=== PATIENT | female | born 1990 | race Caucasian/White ===

== ENCOUNTER 2020-08-19 16:24 | Inpatient (IN) | payer MEDICAID ==
[2020-08-19] MEDS ORDERED: NORMAL SALINE 1000 ML 1,000 ML IV ONE ×3 (16:45→20:41)
--- NOTE | 2020-08-19 16:48 | ER Document Report ---
ED Medical Screen (RME) - General Stated Complaint: ABDOMINAL PAIN Time Seen by Provider: 08/19/20 16:37 Primary Care Provider: MARGUERITE BLISS PA [Primary Care Provider] - Follow up as needed Notes: 30-year-old female patient presenting at 15 weeks gestation complaining of left flank pain, generalized abdominal pain, vomiting all day and recurrent urinary tract infections since October. Most recently she was placed on an antibiotic in July. She states that her pain significantly worsened over the last 24 hours so she decided to go to urgent care. They could not see her due to extended wait time. On arrival to the emergency department here her temperature is 101.9. I have rechecked this and it is 102.7. Patient did not know she had a fever although she states she felt feverish last night. Patient appears moderately uncomfortable, she is clutching her abdomen. I suspect she has pyelonephritis. Orders entered. Patient will go to her room. I have greeted and performed a rapid initial assessment of this patient. A comprehensive ED assessment and evaluation of the patient, analysis of test results and completion of the medical decision making process will be conducted by additional ED providers. I have specifically instructed the patient or family members with the patient to immediately return to any nursing staff should anything change in the patient's condition or with their chief complaint. TRAVEL OUTSIDE OF THE [place] IN LAST 30 DAYS: No - Related Data Allergies/Adverse Reactions: No Known Allergies Allergy (Verified 08/07/13 21:32) Past Medical History Musculoskeltal Medical History: Reports Hx Musculoskeletal Trauma Traumatic Medical History: Reports: Hx Fractures - ankle - Immunizations Hx Diphtheria, Pertussis, Tetanus Vaccination: Yes Physical Exam - Vital signs Vitals: Temp Pulse Resp BP Pulse Ox 101.9 F H 116 H 20 107/79 100 08/19/20 16:29 08/19/20 16:29 08/19/20 16:29 08/19/20 16:29 08/19/20 16:29 Course - Vital Signs Vital signs: Temp Pulse Resp BP Pulse Ox 102.7 F H 116 H 20 107/79 100 08/19/20 16:44 08/19/20 16:29 08/19/20 16:29 08/19/20 16:29 08/19/20 16:29 Doctor's Discharge - Discharge Referrals: MARGUERITE BLISS PA [Primary Care Provider] - Follow up as needed
[2020-08-19] MEDS ORDERED: ACETAMINOPHEN 325 MG TABLET PO ONE (17:22)
[2020-08-19] MEDS ORDERED: ONDANSETRON HCL INJ/PF 4 MG/2 ML SDV IV ONE (17:30)
[2020-08-19 17:33] LABS: ABSOLUTE MONOCYTES (AUTO) 1.3 10^3/uL (0.1-1.4); ABSOLUTE NEUT (AUTO) 17.5 10^3/uL (1.7-8.2); BASOPHILS % (AUTO) 0.1 % (0-2); HEMATOCRIT 34.4 % (36.0-47.0); HEMOGLOBIN 11.8 g/dL (12.0-15.5); LYMPHOCYTES % (AUTO) 5.2 % (13-45); MEAN CORPUSCULAR HEMOGLOBIN 30.6 pg (27.0-33.4); MEAN CORPUSCULAR HGB CONC 34.4 g/dL (32.0-36.0); MEAN CORPUSCULAR VOLUME 89 fl (80-97); MONOCYTES % (AUTO) 6.5 % (3-13); PLATELET COUNT 218 10^3/uL (150-450); RED BLOOD COUNT 3.86 10^6/uL (3.72-5.28); RED CELL DISTRIBUTION WIDTH 13.8 % (11.5-14.0); SEGMENTED NEUTROPHILS % (AUTO) 88.2 % (42-78); TOTAL CELLS COUNTED % (AUTO) 100 %; WHITE BLOOD COUNT 19.9 10^3/uL (4.0-10.5)
--- NOTE | 2020-08-19 17:38 | ER Document Report ---
ED GI/ - General Stated Complaint: ABDOMINAL PAIN Time Seen by Provider: 08/19/20 16:37 Primary Care Provider: MARGUERITE BLISS PA [ALLIED HEALTH PROFESSIONAL] - Follow up as needed Notes: 30-year-old woman presenting to the emergency department 3 para 0 AB 2 with a 14-week intrauterine . Patient states that she had been treated for urinary tract infection and has been given oral antibiotics x3. She apparently took a course of amoxicillin followed by a course of cephalexin and then nitrofurantoin. He has fever today with associated flank pain and lower abdominal pain. Patient had 2 spontaneous AB with her prior pregnancies. Today she has nausea, vomiting, right flank pain and lower abdominal pain with a fever of 102 she has not been able to keep down fluids or food for the past 48 hours. TRAVEL OUTSIDE OF THE [place] IN LAST 30 DAYS: No - Related Data Allergies/Adverse Reactions: No Known Allergies Allergy (Verified 08/07/13 21:32) Past Medical History - Social History Family History: Arthritis, CAD, DM, Hyperlipidemia, Hypertension, Malignancy Musculoskeletal Medical History: Reports Hx Musculoskeletal Trauma Traumatic Medical History: Reports: Hx Fractures - ankle - Immunizations Hx Diphtheria, Pertussis, Tetanus Vaccination: Yes Review of Systems - Review of Systems Notes: Constitutional: + Fever. HENT: Negative for sore throat. Eyes: Negative for visual changes. Cardiovascular: Negative for chest pain. Respiratory: Negative for shortness of breath. Gastrointestinal: Negative for abdominal pain, vomiting or diarrhea. Genitourinary: See HPI Musculoskeletal: + Back pain. Skin: Negative for rash. Neurological: Negative for headaches, weakness or numbness. 10 point ROS negative except as marked above and in HPI. Physical Exam - Vital signs Vitals: Temp Pulse Resp BP Pulse Ox 101.9 F H 116 H 20 107/79 100 08/19/20 16:29 08/19/20 16:29 08/19/20 16:29 08/19/20 16:29 08/19/20 16:29 - Notes Notes: PHYSICAL EXAMINATION: Physical Exam: General: Well-nourished well-developed 30-year-old female in mild distress secondary to fever and nausea. HEENT: NC/AT, pupils equal round and reactive to light, MM moist,nares clear, oropharynx clear, airway patent Neck: supple, no adenopathy, no masses. Good range of motion Lungs: clear, no wheezing, no rales no rhonchi CVS: Tachycardic rate and rhythm no murmur gallop or rub Abdomen: Soft, active, nontender, no masses, no hepatosplenomegaly Ext: No edema, clubbing or cyanosis. Back: Right CVA tenderness Neuro: Alert and responsive, moving all 4 extremities on command, cranial nerves intact, no focal findings Skin: Intact no open lesions, no rash PSYCH: Normal mood, normal affect. Course - Re-evaluation Re-evalutation: 08/19/20 19:45 Patient is receiving IV fluids, Zofran for nausea and vomiting control, Rocephin 1 g IV, blood cultures x2 and a lactate were performed. Lactic is 1.2 patient appears to be somewhat better after receiving a liter of fluid, however WBC is 19,000 and urine reveals a nitrite positive pyuria. Good heart tone was noted on exam and the patient will be brought into the hospital for further IV antibiotics and closer monitoring. Graf Dr. Smith, [employer] on-call was contacted and will admit the patient to second floor. - Vital Signs Vital signs: Temp Pulse Resp BP Pulse Ox 102.7 F H 116 H 27 H 95/75 L 100 08/19/20 16:44 08/19/20 16:29 08/19/20 18:05 08/19/20 18:05 08/19/20 18:05 - Laboratory Result Diagrams: 08/19/20 17:16 08/19/20 17:16 Laboratory results interpreted by me: 08/19/20 08/19/20 08/19/20 17:16 17:16 18:07 WBC 19.9 H Hgb 11.8 L Hct 34.4 L Lymph % (Auto) 5.2 L Absolute Neuts (auto) 17.5 H Seg Neutrophils % 88.2 H Sodium 129.9 L Potassium 3.4 L Chloride 96 L Carbon Dioxide 21 L Creatinine 0.47 L Glucose 118 H Urine Protein 100 H Urine Ketones 80 H Urine Blood MODERATE H Urine Nitrite POSITIVE H Urine Urobilinogen 2.0 H Ur Leukocyte Esterase LARGE H I have reviewed laboratory data and used this information for the treatment decisions regarding the patient. Discharge - Discharge Clinical Impression: Pyelonephritis, Second trimester Leukocytosis Qualifiers: Leukocytosis type: unspecified Qualified Code(s): D72.829 - Elevated white blood cell count, unspecified Fever Qualifiers: Fever type: unspecified Qualified Code(s): R50.9 - Fever, unspecified Condition: Good Disposition: ADMITTED INPATIENT Admitting Provider: [facility] - Dr. Noe Smith Unit Admitted: Post - Skin asif Referrals: MARGUERITE BLISS PA [ALLIED HEALTH PROFESSIONAL] - Follow up as needed
[2020-08-19] MEDS ORDERED: CEFTRIAXONE 1 GM/D5W RTU 1 GM/50 ML RTUPB IV ONE (18:00)
[2020-08-19 18:03] LABS: ALBUMIN 3.8 g/dL (3.5-5.0); ALKALINE PHOSPHATASE 66 U/L (38-126); ANION GAP 13 (5-19); ASPARTATE AMINO TRANSFERASE 16 U/L (14-36); BILIRUBIN,DIRECT 0.1 mg/dL (0.0-0.4); BILIRUBIN,TOTAL 0.4 mg/dL (0.2-1.3); BLOOD UREA NITROGEN 13 mg/dL (7-20); CALCIUM 8.6 mg/dL (8.4-10.2); CARBON DIOXIDE 21 mmol/L (22-30); CHLORIDE 96 mmol/L (98-107); GLUCOSE 118 mg/dL (75-110); POTASSIUM 3.4 mmol/L (3.6-5.0); TOTAL PROTEIN 6.8 g/dL (6.3-8.2)
[2020-08-19 18:34] LABS: APPEARANCE,URINE CLOUDY; BILIRUBIN,URINE NEGATIVE (NEGATIVE); COLOR,URINE YELLOW; GLUCOSE, URINE NEGATIVE (NEGATIVE); KETONES,URINE 80 mg/dL (NEGATIVE); LEUKOCYTE ESTERASE,URINE LARGE (NEGATIVE); NITRITE,URINE POSITIVE (NEGATIVE); PROTEIN,URINE 100 mg/dL (NEGATIVE); URINE SPECIFIC GRAVITY 1.016
[2020-08-19] MEDS ORDERED: NICOTINE 14 MG/24 HR PATCH.TD24 TD ONE (20:08)
[2020-08-19] MEDS: RINGERS SOLUTION,LACTATED 1,000 ML IV PRN (23:30)
[2020-08-20] MEDS: ACETAMINOPHEN 325 MG TABLET PO PRN ×3 (03:21→20:17)
[2020-08-20] MEDS ORDERED: CEFTRIAXONE 1 GM/D5W RTU 1 GM/50 ML RTUPB IV ONE (04:59)
[2020-08-20] MEDS ORDERED: ONDANSETRON 4 MG TAB.RAPDIS ONE (05:21)
[2020-08-20] MEDS ORDERED: ACETAMINOPHEN 325 MG TABLET ONE (05:22)
[2020-08-20] MEDS: CEFTRIAXONE 1 GM/D5W RTU 1 GM/50 ML RTUPB IV SCH ×2 (05:29→17:10)
[2020-08-20] MEDS ORDERED: ACETAMINOPHEN 325 MG TABLET PO ONE (05:30)
[2020-08-20] MEDS ORDERED: ONDANSETRON 4 MG TAB.RAPDIS PO ONE (05:30)
[2020-08-20] MEDS: RINGERS SOLUTION,LACTATED 1,000 ML IV PRN ×3 (05:30→18:34)
[2020-08-20 07:58] LABS: HEMATOCRIT 28.2 % (36.0-47.0); HEMOGLOBIN 9.8 g/dL (12.0-15.5); MEAN CORPUSCULAR HEMOGLOBIN 30.9 pg (27.0-33.4); MEAN CORPUSCULAR HGB CONC 34.7 g/dL (32.0-36.0); MEAN CORPUSCULAR VOLUME 89 fl (80-97); PLATELET COUNT 164 10^3/uL (150-450); RED BLOOD COUNT 3.17 10^6/uL (3.72-5.28); RED CELL DISTRIBUTION WIDTH 13.9 % (11.5-14.0)
[2020-08-20 08:24] LABS: ABSOLUTE LYMPHOCYTES# (MANUAL) 0.4 10^3/uL (0.5-4.7); ABSOLUTE MONOCYTES # (MANUAL) 0.9 10^3/uL (0.1-1.4); BAND NEUTROPHILS % (MANUAL) 2 % (3-5); BASOPHILS % (MANUAL) 0 % (0-2); EOSINOPHILS % (MANUAL) 0 % (0-6); LYMPHOCYTES % (MANUAL) 2 % (13-45); MONOCYTES % (MANUAL) 5 % (3-13); SEGMENTED NEUTROPHILS % (MAN) 91 % (42-78); TOTAL CELLS COUNTED 100
[2020-08-20 08:25] LABS: PLATELET COMMENT ADEQUATE; RBC MORPHOLOGY COMMENT NORMO-CYTIC/CHROMIC
--- NOTE | 2020-08-20 09:04 | PDOC H&P ---
History of Present Illness Admission Date/PCP: 08/19/20 20:03 Patient complains of: urinary tract infection symptoms with backpain and fever History of Present Illness: ULISES SINGH is a 30 year old female @ 15 1 wks who presented to the ED last evening with complaints of fever and backpain as well as dysuria. She was found to have pyeloneprhitis and febrile. She was admitted by Dr. Smith for IV antibiotics. Pt indicates that she "has kept an UTI since October it seems" and states she's been on multiple different antibiotics for it. Overnight she did spike fevers up to 103.0 that have been relieved with antibiotics, fulids and tylenol. Patient states to me now that she is starting to feel better. Past Medical History Psychiatric Medical History: Denies: Depression Past Surgical History Past Surgical History: Reports: None Social History Information Source: Patient Smoking Status: Current Every Day Smoker Electronic Cigarette use?: No Number of Years Smokin Last Time Smoked: 08/19/2020 Frequency of Alcohol Use: None Hx Recreational Drug Use: No Hx Prescription Drug Abuse: No Family History Family History: Arthritis, CAD, DM, Hyperlipidemia, Hypertension, Malignancy Parental Family History Reviewed: Yes Children Family History Reviewed: NA Sibling(s) Family History Reviewed.: Yes Medication/Allergy Home Medications: Clonazepam [Klonopin 0.5 mg Tablet] 0.5 mg PO BID 08/07/13 Ciprofloxacin HCl [Cipro 500 mg Tablet] 500 mg PO BID #20 tablet 08/08/13 Docusate Sodium [Colace 100 mg Capsule] 100 mg PO BID #60 capsule 08/08/13 Phenazopyridine HCl [Pyridium 200 mg Tablet] 200 mg PO TID #15 tablet 08/08/13 Hydrocodone/Acetaminophen [[place] 5-325 mg Tablet] 1 tab PO TIDP PRN #10 tablet 03/26/16 Allergies/Adverse Reactions: No Known Allergies Allergy (Verified 08/07/13 21:32) Physical Exam - Physical Exam Vital Signs: Temp Pulse Resp BP Pulse Ox 98.3 F 103 H 18 101/58 L 98 08/20/20 08:29 08/20/20 08:29 08/20/20 08:29 08/20/20 08:29 08/20/20 08:29 Intake & Output 08/19/20 08/20/2008/21/20 06:59 06:59 06:59 Intake Total 4000 Output Total 400 Balance 4000 -400 Weight 56.3 kg General appearance: PRESENT: no acute distress, cooperative, well-developed Additional comments: postive CVA tenderness on left flank. Result Laboratory Results: 08/20/20 07:31 08/19/20 17:16 08/19/20 08/19/20 08/19/20 17:16 17:16 17:16 WBC 19.9 H RBC 3.86 Hgb 11.8 L Hct 34.4 L MCV 89 MCH 30.6 MCHC 34.4 RDW 13.8 Plt Count 218 Seg Neutrophils % 88.2 H Sodium 129.9 L Potassium 3.4 L Chloride 96 L Carbon Dioxide 21 L Anion Gap 13 BUN 13 Creatinine 0.47 L Est GFR ( Amer) > 60 Glucose 118 H Lactic Acid 1.2 Calcium 8.6 Total Bilirubin 0.4 AST 16 Alkaline Phosphatase 66 Total Protein 6.8 Albumin 3.8 Urine Color Urine Appearance Urine pH Ur Specific [place] Urine Protein Urine Glucose (UA) Urine Ketones Urine Blood Urine Nitrite Ur Leukocyte Esterase Urine WBC (Auto) Urine RBC (Auto) 08/19/20 08/20/20 18:07 07:31 WBC 18.0 H RBC 3.17 L Hgb 9.8 L Hct 28.2 L MCV 89 MCH 30.9 MCHC 34.7 RDW 13.9 Plt Count 164 Seg Neutrophils % Not Reportable Sodium Potassium Chloride Carbon Dioxide Anion Gap BUN Creatinine Est GFR ( Amer) Glucose Lactic Acid Calcium Total Bilirubin AST Alkaline Phosphatase Total Protein Albumin Urine Color YELLOW Urine Appearance CLOUDY Urine pH 6.0 Ur Specific [place] 1.016 Urine Protein 100 H Urine Glucose (UA) NEGATIVE Urine Ketones 80 H Urine Blood MODERATE H Urine Nitrite POSITIVE H Ur Leukocyte Esterase LARGE H Urine WBC (Auto) >182 Urine RBC (Auto) 8 Assessment & Plan - Diagnosis (1) Fever Qualifiers: Fever type: unspecified Qualified Code(s): R50.9 - Fever, unspecified Is this a current diagnosis for this admission?: Yes (2) Leukocytosis Qualifiers: Leukocytosis type: unspecified Qualified Code(s): D72.829 - Elevated white blood cell count, unspecified Is this a current diagnosis for this admission?: Yes (3) Pyelonephritis Is this a current diagnosis for this admission?: Yes (4) Second trimester Is this a current diagnosis for this admission?: Yes - Time Time Spent: 30 to 50 Minutes Critical Time spent with patient: Less than 15 minutes Smoking Cessation Education: 3 to 10 minutes Medications reviewed and adjusted accordingly: Yes Anticipated Discharge Disposition: Home, Self Care Anticipated Discharge Timeframe: within 48 hours - Inpatient Certification Based on my medical assessment, after consideration of the patient's comorbidities, presenting symptoms, or acuity I expect that the services needed warrant INPATIENT care.: Yes I certify that my determination is in accordance with my understanding of Medicare's requirements for reasonable and necessary INPATIENT services [42 CFR 412.3e].: Yes Medical Necessity: Need For IV Fluids, Need for IV Antibiotics - Plan Summary Plan Summary: continue IV rocephin. Will give Nicotine patch to assist with cravings, add P romethizine for nausea as needed. will get heart tone q daily. Counseled pt that she would need 48 hours of IV antibiotics and she will need to continue oral antibiotics until delivery. 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
[2020-08-20] MEDS: NICOTINE 21 MG/24 HR PATCH.TD24 TD PRN (09:43)
[2020-08-20] MEDS: PROMETHAZINE HCL INJ 25 MG/1 ML VIAL IV PRN (23:26)
[2020-08-21] MEDS: ACETAMINOPHEN 325 MG TABLET PO PRN ×5 (00:23→20:08)
[2020-08-21] MEDS: RINGERS SOLUTION,LACTATED 1,000 ML IV PRN ×3 (01:15→17:21)
[2020-08-21] MEDS: PROMETHAZINE HCL INJ 25 MG/1 ML VIAL IV PRN ×4 (06:30→20:11)
[2020-08-21] MEDS: CEFTRIAXONE 1 GM/D5W RTU 1 GM/50 ML RTUPB IV SCH ×2 (06:34→17:20)
[2020-08-21 07:02] LABS: ABSOLUTE LYMPHOCYTES (AUTO) 1.4 10^3/uL (0.5-4.7); ABSOLUTE NEUT (AUTO) 11.6 10^3/uL (1.7-8.2); BASOPHILS % (AUTO) 0.1 % (0-2); EOSINOPHILS % (AUTO) 0.3 % (0-6); HEMATOCRIT 30.1 % (36.0-47.0); HEMOGLOBIN 10.6 g/dL (12.0-15.5); LYMPHOCYTES % (AUTO) 9.8 % (13-45); MEAN CORPUSCULAR HEMOGLOBIN 31.5 pg (27.0-33.4); MEAN CORPUSCULAR HGB CONC 35.3 g/dL (32.0-36.0); MEAN CORPUSCULAR VOLUME 89 fl (80-97); MONOCYTES % (AUTO) 7.4 % (3-13); PLATELET COUNT 153 10^3/uL (150-450); RED BLOOD COUNT 3.38 10^6/uL (3.72-5.28); RED CELL DISTRIBUTION WIDTH 14.2 % (11.5-14.0); SEGMENTED NEUTROPHILS % (AUTO) 82.4 % (42-78); TOTAL CELLS COUNTED % (AUTO) 100 %; WHITE BLOOD COUNT 14.1 10^3/uL (4.0-10.5)
[2020-08-21] MEDS: NICOTINE 21 MG/24 HR PATCH.TD24 TD PRN (09:31)
--- NOTE | 2020-08-21 09:50 | PDOC PROGRESS REPORT ---
Subjective Date:: 08/21/20 Subjective:: She is doing well today. Reason For Visit: PYELONEPHRITIS,SECOND TRIMESTER , Physical Exam - Physical Exam Vital Signs: Temp Pulse Resp BP Pulse Ox 98.4 F 98 16 104/56 L 99 08/21/20 07:18 08/21/20 07:18 08/21/20 07:18 08/21/20 07:18 08/21/20 07:18 Intake & Output 08/20/20 08/21/20 08/22/20 06:59 06:59 06:59 Intake Total 4000 4610 50 Output Total 2550 Balance 4000 2060 50 Weight 56.3 kg 56.9 kg General appearance: PRESENT: no acute distress, well-developed, well-nourished Cardiovascular exam: PRESENT: RRR. ABSENT: diastolic murmur, rubs, systolic mur mur Pulses: PRESENT: normal dorsalis pedis pul, +2 pedal pulses bilateral Vascular exam: PRESENT: normal capillary refill Extremities exam: PRESENT: full ROM. ABSENT: calf tenderness, clubbing, pedal edema Musculoskeletal exam: PRESENT: other - still cva tenderness Result Laboratory Results: 08/21/20 06:42 08/19/20 17:16 08/21/20 06:42 WBC 14.1 H RBC 3.38 L Hgb 10.6 L Hct 30.1 L MCV 89 MCH 31.5 MCHC 35.3 RDW 14.2 H Plt Count 153 Seg Neutrophils % 82.4 H 08/19/20 18:07 Clean Catch Midstream Urine Culture - Final Escherichia Coli Assessment & Plan - Diagnosis (1) Fever Qualifiers: Fever type: unspecified Qualified Code(s): R50.9 - Fever, unspecified Is this a current diagnosis for this admission?: Yes (2) Pyelonephritis Is this a current diagnosis for this admission?: Yes (3) Second trimester Is this a current diagnosis for this admission?: Yes Plan: Continue IV fluids and antibiotics. - Time Time Spent with patient: Less than 15 minutes Medications reviewed and adjusted accordingly: Yes Anticipated discharge: Home Anticipated DC Timeframe: within 48 hours
[2020-08-22] MEDS: ACETAMINOPHEN 325 MG TABLET PO PRN ×3 (00:41→09:29)
[2020-08-22] MEDS: RINGERS SOLUTION,LACTATED 1,000 ML IV PRN (00:41)
[2020-08-22] MEDS: PROMETHAZINE HCL INJ 25 MG/1 ML VIAL IV PRN ×3 (00:41→09:23)
[2020-08-22] MEDS: CEFTRIAXONE 1 GM/D5W RTU 1 GM/50 ML RTUPB IV SCH (05:18)
[2020-08-22] MEDS: NICOTINE 21 MG/24 HR PATCH.TD24 TD PRN (08:48)
--- NOTE | 2020-08-22 12:50 | PDOC DISCHARGE SUMMARY ---
Impression - Admit/DC Date/PCP Admission Date/Primary Care Provider: 08/19/20 20:03 MICHAEL DICKERSON MD Discharge Date: 08/22/20 - Discharge Diagnosis (1) Pyelonephritis Is this a current diagnosis for this admission?: Yes (2) Second trimester Is this a current diagnosis for this admission?: Yes - Additional Information Resuscitation Status: Full Code Discharge Diet: As Tolerated Discharge Activity: Activity As Tolerated Referrals: MARGUERITE BLISS PA [ALLIED HEALTH PROFESSIONAL] - ([facility] as scheduled or in 2 wks D) Prescriptions: Nitrofurantoin Monohyd/M-Cryst [Macrobid 100 mg Capsule] 100 mg PO BID 7 Days #14 cap Home Medications: Ciprofloxacin HCl [Cipro 500 mg Tablet] 500 mg PO BID #20 tablet 08/08/13 Docusate Sodium [Colace 100 mg Capsule] 100 mg PO BID #60 capsule 08/08/13 Nitrofurantoin Monohyd/M-Cryst [Macrobid 100 mg Capsule] 100 mg PO BID 7 Days #14 cap 08/22/20 History of Present Illiness History of Present Illness: ULISES SINGH is a 30 year old female Physical Exam - Physical Exam Vital Signs: Temp Pulse Resp BP Pulse Ox 98.3 F 80 16 119/66 99 08/22/20 11:14 08/22/20 11:14 08/22/20 11:14 08/22/20 11:14 08/22/20 11:14 Intake & Output 08/21/20 08/22/20 08/23/20 06:59 06:59 06:59 Intake Total 4610 3725 640 Output Total 2550 Balance 2060 3725 640 Weight 56.9 kg 57.9 kg Results Laboratory Results: WBC 14.1 10^3/uL (4.0-10.5) H 08/21/20 06:42 RBC 3.38 10^6/uL (3.72-5.28) L 08/21/20 06:42 Hgb 10.6 g/dL (12.0-15.5) L 08/21/20 06:42 Hct 30.1 % (36.0-47.0) L 08/21/20 06:42 MCV 89 fl (80-97) 08/21/20 06:42 MCH 31.5 pg (27.0-33.4) 08/21/20 06:42 MCHC 35.3 g/dL (32.0-36.0) 08/21/20 06:42 RDW 14.2 % (11.5-14.0) H 08/21/20 06:42 Plt Count 153 10^3/uL (150-450) 08/21/20 06:42 Lymph % (Auto) 9.8 % (13-45) L 08/21/20 06:42 [place] % (Auto) 7.4 % (3-13) 08/21/20 06:42 Eos % (Auto) 0.3 % (0-6) 08/21/20 06:42 Baso % (Auto) 0.1 % (0-2) 08/21/20 06:42 Absolute Neuts (auto) 11.6 10^3/uL (1.7-8.2) H 08/21/20 06:42 Absolute Lymphs (auto) 1.4 10^3/uL (0.5-4.7) 08/21/20 06:42 Absolute Monos (auto) 1.0 10^3/uL (0.1-1.4) 08/21/20 06:42 Absolute Eos (auto) 0.0 10^3/uL (0.0-0.6) 08/21/20 06:42 Absolute Basos (auto) 0.0 10^3/uL (0.0-0.2) 08/21/20 06:42 Total Counted 100 08/20/20 07:31 Seg Neutrophils % 82.4 % (42-78) H 08/21/20 06:42 Seg Neuts % (Manual) 91 % (42-78) H 08/20/20 07:31 Band Neutrophils % 2 % (3-5) L 08/20/20 07:31 Lymphocytes % (Manual) 2 % (13-45) L 08/20/20 07:31 Monocytes % (Manual) 5 % (3-13) 08/20/20 07:31 Eosinophils % (Manual) 0 % (0-6) 08/20/20 07:31 Basophils % (Manual) 0 % (0-2) 08/20/20 07:31 Abs Neuts (Manual) 16.7 10^3/uL (1.7-8.2) H 08/20/20 07:31 Abs Lymphs (Manual) 0.4 10^3/uL (0.5-4.7) L 08/20/20 07:31 Abs Monocytes (Manual) 0.9 10^3/uL (0.1-1.4) 08/20/20 07:31 Absolute Eos (Manual) 0.0 10^3/uL (0.0-0.6) 08/20/20 07:31 Abs Basophils (Manual) 0.0 10^3/uL (0.0-0.2) 08/20/20 07:31 Platelet Comment ADEQUATE 08/20/20 07:31 RBC Morph Comment NORMO-CYTIC/CHROMIC 08/20/20 07:31 Sodium 129.9 mmol/L (137-145) L 08/19/20 17:16 Potassium 3.4 mmol/L (3.6-5.0) L 08/19/20 17:16 Chloride 96 mmol/L (98-107) L 08/19/20 17:16 Carbon Dioxide 21 mmol/L (22-30) L 08/19/20 17:16 Anion Gap 13 (5-19) 08/19/20 17:16 BUN 13 mg/dL (7-20) 08/19/20 17:16 Creatinine 0.47 mg/dL (0.52-1.25) L 08/19/20 17:16 Est GFR ( Amer) > 60 (>60) 08/19/20 17:16 Est GFR (MDRD) Non-Af > 60 (>60) 08/19/20 17:16 Glucose 118 mg/dL (75-110) H 08/19/20 17:16 Lactic Acid 1.2 mmol/L (0.7-2.1) 08/19/20 17:16 Calcium 8.6 mg/dL (8.4-10.2) 08/19/20 17:16 Total Bilirubin 0.4 mg/dL (0.2-1.3) 08/19/20 17:16 Direct Bilirubin 0.1 mg/dL (0.0-0.4) 08/19/20 17:16 Neonat Total Bilirubin Not Reportable 08/19/20 17:16 Neonat Direct Bilirubin Not Reportable 08/19/20 17:16 Neonat Indirect Bili Not Reportable 08/19/20 17:16 AST 16 U/L (14-36) 08/19/20 17:16 ALT 9 U/L (<35) 08/19/20 17:16 Alkaline Phosphatase 66 U/L (38-126) 08/19/20 17:16 Total Protein 6.8 g/dL (6.3-8.2) 08/19/20 17:16 Albumin 3.8 g/dL (3.5-5.0) 08/19/20 17:16 Beta HCG, Quant 05046.00 mIU/mL (0.0-6.15) H 08/19/20 17:16 Total Beta HCG POSITIVE (NEGATIVE) 08/19/20 17:16 Urine Color YELLOW 08/19/20 18:07 Urine Appearance CLOUDY 08/19/20 18:07 Urine pH 6.0 (5.0-9.0) 08/19/20 18:07 Ur Specific [place] 1.016 08/19/20 18:07 Urine Protein 100 mg/dL (NEGATIVE) H 08/19/20 18:07 Urine Glucose (UA) NEGATIVE mg/dL (NEGATIVE) 08/19/20 18:07 Urine Ketones 80 mg/dL (NEGATIVE) H 08/19/20 18:07 Urine Blood MODERATE (NEGATIVE) H 08/19/20 18:07 Urine Nitrite POSITIVE (NEGATIVE) H 08/19/20 18:07 Urine Bilirubin NEGATIVE (NEGATIVE) 08/19/20 18:07 Urine Urobilinogen 2.0 mg/dL (<2.0) H 08/19/20 18:07 Ur Leukocyte Esterase LARGE (NEGATIVE) H 08/19/20 18:07 Urine WBC (Auto) >182 /HPF 08/19/20 18:07 Urine RBC (Auto) 8 /HPF 08/19/20 18:07 Urine Bacteria (Auto) 1+ /HPF 08/19/20 18:07 Urine WBC Clumps FEW /HPF 08/19/20 18:07 Squamous Epi Cells Auto 4 /HPF 08/19/20 18:07 U Non-Squamous Epis Auto 3 /HPF 08/19/20 18:07 Urine Mucus (Auto) OCC /LPF 08/19/20 18:07 Urine Ascorbic Acid NEGATIVE (NEGATIVE) 08/19/20 18:07 Stroke Is this a Stroke Patient?: No Acute Heart Failure Is this a Heart Failure Patient?: No
[2020-08-22 13:34] VITALS: BP 118/75
[2020-08-22] MEDS ORDERED: BISACODYL 5 MG TABEC PO ONE ×2 (14:00→14:05)
== END 2020-08-22 14:22 | disposition home or self-care (01) | DRG 833 ==
LOC: ER 16:24 → EH 20:03 → 2S 23:00
PROVIDERS: ADMIT Obstetrics & Gynecology Gynecology; ATTEND Obstetrics & Gynecology Gynecology
DX: O23.02 Infections of kidney in pregnancy, second trimester (principal); Z3A.15 15 weeks gestation of pregnancy; O99.332 Smoking (tobacco) complicating pregnancy, second trimester; F17.210 Nicotine dependence, cigarettes, uncomplicated; Z82.49 Family history of ischemic heart disease and other diseases of the circulatory system; Z83.3 Family history of diabetes mellitus; Z83.438 Family history of other disorder of lipoprotein metabolism and other lipidemia
CPT/HCPCS: 36415; 80053; 81001; 83605; 84702; 85025; 87040; 87086; 87088; 87186; 96361; 96365; 96375; 99284; J0696; J2405; J2550; J7030; J7120; S0119